=== PATIENT | male | born 1930 | race Caucasian/White ===

== ENCOUNTER 2017-09-10 07:10 | Day surgery (SDC) | payer OTHER ==
[~2017-09-10] VITALS: Ht 177.8 cm; Wt 95.3 kg
[~2017-09-10 07:10] MED LIST: 1-ME1LIQ OR; CARV12.52 OR; LEVA500T33 PO; LISI-366 PO; METO10 PO; OMEP20TA OR; PERC10TA27 PO; ROSU20 PO; SM A81CH PO; TESTIM
[2017-09-10 07:54] VITALS: BP 133/79; PULSE 56; RESP 17; TEMP 97.7; O2SAT 94
[2017-09-10] MEDS ORDERED: Hold AM Insulin & AM Hypoglycemic medications in diabetic patients PRN (08:00)
[2017-09-10] MEDS ORDERED: 1/2 NS 1000 ML IV SCH (08:00)
[2017-09-10] MEDS ORDERED: MUPIROCIN 2% OINT 1 APPLIC/GM SYR NASAL SCH (08:00)
[2017-09-10] MEDS ORDERED: SODIUM CHLORID 0.9% 500 ML IV PRN (08:00)
[2017-09-10] MEDS ORDERED: LACTATED RINGER'S 1000 ML IV PRN (08:00)
[2017-09-10] MEDS ORDERED: METOPROLOL TARTRATE 25 MG TAB PO PRN (08:00)
[2017-09-10] MEDS ORDERED: CLINDAMYCIN 900 MG/NS 100 ML IV SCH ×2 (08:00)
[2017-09-10] MEDS ORDERED: INSULIN HUMAN REGULAR 1,000 UNITS/10 ML VIAL SQ PRN (08:00)
[2017-09-10] MEDS ORDERED: VANCOMYCIN 1000 MG/NS 250 ML IV SCH ×4 (08:00)
[2017-09-10] MEDS ORDERED: NO Heparin, Lovenox, Coumadin at least 12 hours prior to procedure. PRN (08:00)
[2017-09-10] MEDS ORDERED: POVIDONE IODINE 5% (ANTISEPSIS KIT) 4 APPLICATIONS EACH NARE PRN (08:00)
[2017-09-10] MEDS ORDERED: ceFAZolin 2 GM PREMIX 50 ML IV SCH (08:00)
[2017-09-10] MEDS ORDERED: POVIDONE IODINE 5% (ANTISEPSIS KIT) 4 APPLICATIONS EACH NARE SCH (08:00)
[2017-09-10] MEDS ORDERED: NS 1000 ML IV SCH (08:00)
[2017-09-10] MEDS ORDERED: CHLORHEXIDINE GLUCONATE 2 % 1 PACK (2 CLOTHS) TOPICAL PRN (08:00)
[2017-09-10] MEDS ORDERED: LORazepam 1 MG TAB SL SCH (08:00)
[2017-09-10] MEDS ORDERED: CHLORHEXIDINE GLUCONATE 2 % 1 PACK (2 CLOTHS) TOPICAL SCH (08:00)
[2017-09-10] MEDS ORDERED: MULTTAB67 PO (08:05)
[2017-09-10] MEDS ORDERED: ECASA81 PO (08:05)
[2017-09-10] MEDS ORDERED: LISI40TA PO (08:05)
[2017-09-10] MEDS ORDERED: SAW450CA2 PO (08:05)
[2017-09-10] MEDS ORDERED: OMEP20TA93 PO (08:05)
[2017-09-10] MEDS ORDERED: ATOR80TA45 PO (08:05)
[2017-09-10] MEDS ORDERED: AMLO10TA2 PO (08:05)
[2017-09-10] MEDS ORDERED: CARV12.52 PO (08:05)
[2017-09-10 08:15] LABS: AUTOMATED NEUTROPHIL # 3.3 TH/MM3 (1.8-7.7); BASOPHIL # 0.1 TH/MM3 (0-0.2); BASOPHIL % 1.3 % (0.0-2.0); EOSINOPHIL # 0.7 TH/MM3 (0-0.4); EOSINOPHIL % 12.2 % (0.0-4.0); HEMATOCRIT 44.8 % (39.0-51.0); HEMOGLOBIN 15.2 GM/DL (13.0-17.0); LYMPH % 14.2 % (9.0-44.0); LYMPHOCYTE # 0.8 TH/MM3 (1.0-4.8); MEAN CELL VOLUME 96.9 FL (80.0-100.0); MEAN CORPUSCULAR HEMOGLOBIN 32.8 PG (27.0-34.0); MEAN CORPUSCULAR HGB CONC 33.9 % (32.0-36.0); MEAN PLATELET VOLUME 9.2 FL (7.0-11.0); MONO % 12.6 % (0.0-8.0); MONOCYTE # 0.7 TH/MM3 (0-0.9); NEUT % 59.7 % (16.0-70.0); PLATELET COUNT 140 TH/MM3 (150-450); RED BLOOD COUNT 4.62 MIL/MM3 (4.50-5.90); RED CELL DISTRIBUTION WIDTH 13.7 % (11.6-17.2); WHITE BLOOD COUNT 5.5 TH/MM3 (4.0-11.0)
[2017-09-10 08:29] LABS: PROTHROMBIN TIME - PATIENT 10.6 SEC (9.8-11.6)
[2017-09-10 08:32] LABS: BICARBONATE 25.8 MEQ/L (21.0-32.0); CALCIUM 8.9 MG/DL (8.5-10.1); CREATININE 0.98 MG/DL (0.60-1.30)
[2017-09-10] MEDS ORDERED: LIDOCAINE HCL 2% 50 ML VIAL ONE (11:10)
[2017-09-10] MEDS ORDERED: VANCOMYCIN 500 MG VIAL ONE (11:10)
[2017-09-10] MEDS ORDERED: PROPOFOL 200 MG/20 ML AMP ONE ×2 (11:22→11:41)
--- NOTE | 2017-09-10 12:29 | PD.CARD ---
Dual Defib Replacement PROCEDURE DATE: Sep 10, 2017 NYHA Classification: Class II (Mild) Prevention: Primary Dual Defib Replacement PROCEDURE 1. Dual-chamber defibrillator removal. 2. Dual-chamber defibrillator replacement. 3. Pocket revision. Mr. Badillo is a 87 -year-old male with hx of ischemic cardiomyopathy, Ejection fraction EF 52%, defibrillator currently end of life, admitted for generator replacement. The risks, the nature and the benefit of the procedure clearly stated to him. The risks include pneumothorax, cardiac perforation, stroke and even . He understood and agreed to proceed. PROCEDURE After written informed consent was obtained, the patient was brought to the EP lab where he was prepped and draped in the usual sterile fashion. Conscious sedation was initiated and maintained throughout the procedure by anesthesiologist. Once sedation was verified, the left infraclavicular area was anesthetized with 2% Xylocaine. Using #11 blade scalpel, a 3-cm incision was made over the existing generator. The incision was then taken down deep fascial layers generator exposed. Once exposed, it was removed from the pocket. Scar tissue was removed around the lead pocket revision was performed. Pocket was expanded. Then, the lead was disconnected from the generator and tested. After adequate pacing and sensing thresholds were obtained. The leads were connected to the new generator and placed into the pocket. I did proceed with wound closure. The deep fascial layer was approximated using 2-0 Vicryl suture in a continuous fashion. The subcutaneous layer was approximated using 2-0 Vicryl suture in a continuous fashion. The subcuticular layer was approximated using 2-0 Vicryl suture in a continuous fashion. Dermabond adhesive was applied to the wound followed by sterile pressure dressing. There was no complication. The patient tolerated procedure. Blood loss minimal. 1. Explanted hardware: The explanted defibrillator is a NIURKA model number 6550, serial number [id number]. That was implanted in 2010. For information about existing lead please refer to previous dictation. 2. Implanted hardware: The implanted defibrillator generator is a [employer], model number HCRB0I2, serial number [id number]. 3. Threshold: The right atrial pacing threshold in the bipolar mode was 0.5 volt at 0.5 milliseconds. Lead impedance 2825 ohms and P-wave at 4.9 mV. The right ventricular pacing threshold in the bipolar mode was 1.0 volts at 0.5 milliseconds. Lead impedance 342 ohms and R-wave at 6.3 mV. 4. Settings: The device is set in a DDD 50, upper limit 120 beats per minute. AV delay extended to maximum facilitate A pacing V sensing. Defibrillatory portioned for two zones, one zone for ventricular tachycardia between 170 to 250 beats per minute. Initial therapy consists of one burst of ATP, one ramp, 81%. 10 pulses, 10 ms decremental followed by 20 then 25 and all subsequent shocks at 35 defibrillatory shock. Second zone for ventricular fibrillation above 250 beats per minute, first therapy at 25 and all subsequent shocks at 35 joule defibrillatory shock. CONCLUSIONS Successful defibrillator removal, defibrillator replacement. COMMENT/RECOMMENDATIONS The patient will be transferred to telemetry unit. He will be observed, when stable can be discharged home Shantanu Toledo MD Sep 10, 2017 12:29
[2017-09-10] MEDS ORDERED: SODIUM CHLORIDE 0.9% FLUSH 10 ML FLUSH IV FLUSH PRN (12:30)
[2017-09-10] MEDS ORDERED: ONDANSETRON HCL 4 MG/2 ML VIAL IV PUSH PRN (12:30)
[2017-09-10] MEDS ORDERED: ACETAMINOPHEN/CODEINE 300 MG/30 MG TAB PO PRN ×2 (12:30)
[2017-09-10] MEDS ORDERED: CEPH-460 PO (12:32)
[2017-09-10] MEDS ORDERED: NORC5TAB PO (12:32)
--- NOTE | 2017-09-10 17:34 | EKG ---
Date Performed: 09/10/2017 Time Performed: 08:22:54 PTAGE: 87 years EKG: PACED ATRIAL RHYTHM WITH FIRST DEGREE AV BLOCK OTHERWISE NORMAL EKG Compared to prior melvi ng no significant change PREVIOUS TRACING : 12/27/2010 07.06 DOCTOR: Laura Milan Interpretating Date/Time 09/10/2017 17:32:44
[2017-09-10] MEDS ORDERED: SODIUM CHLORIDE 0.9% FLUSH 10 ML FLUSH IV FLUSH SCH (21:00)
== END 2017-09-10 15:30 | disposition home or self-care (01) ==
LOC: HDIC 07:10 → HDOC 07:10
PROVIDERS: ATTEND Internal Medicine Interventional Cardiology
DX: Z45.02 Encounter for adjustment and management of automatic implantable cardiac defibrillator (principal); I25.5 Ischemic cardiomyopathy; I10 Essential (primary) hypertension; R73.03 Prediabetes; I80.9 Phlebitis and thrombophlebitis of unspecified site; I25.810 Atherosclerosis of coronary artery bypass graft(s) without angina pectoris; E78.5 Hyperlipidemia, unspecified; Z01.818 Encounter for other preprocedural examination
CPT/HCPCS: 33263; 80048; 85025; 85610; 85730; 86850; 86900; 86901; 93005; C1721; J0690; J3010; J3370; J7050